=== PATIENT | male | born 1990 | race Caucasian/White ===

== ENCOUNTER 2019-08-20 12:00 | Emergency (ER) | payer OTHER, SELFPAY ==
[2019-08-20 12:13] VITALS: BP 157/79; PULSE 76; RESP 18; TEMP 36.2; O2SAT 100
--- NOTE | 2019-08-20 13:50 | ED.GENADULT ---
HPI - General Adult General Chief complaint: Unspecified Stated complaint: I have an e-cigarette lung injury Time Seen by Provider: 08/20/19 12:06 Source: patient Mode of arrival: ambulatory Limitations: no limitations History of Present Illness HPI narrative: Patient is a 28-year-old male who presents to emergency department with a litany of complaints that have been going on since October when he thought that he had been poisoned by his e-cigarette patient is being managed for primary care for this and has seen woods rider white spooler and is scheduled to see numerous other specialists patient notes that he gets pain in his joints and has had dyspnea that occurs with certain odors and now even eating patient notes that the symptoms began when using his e-cigarette and is adamant that the e-cigarette is the cause patient denies any URI symptoms fever chills nausea vomiting on arrival is in no distress. Patient is requesting that he receive a chest CT today Related Data Home Medications Medication Instructions Recorded Confirmed No Home Medications 08/20/19 08/20/19 Allergies Allergy/AdvReac Type Severity Reaction Status Date / Time No Known Allergies Allergy Mild Verified 08/20/19 12:17 Review of Systems Review of Systems: All systems reviewed & are unremarkable except as noted in HPI and below PMFSH Family History Family History (Updated 10/20/16 @ 14:17 by DOCTOR UNKNOWN) Mother Family history of arthritis Father Family history of chronic obstructive pulmonary disease Social History Social History (Updated 08/20/19 @ 13:52 by Salomón Gooden PA-C) Smoking status: Former smoker Tobacco type: e-cigarettes Second hand tobacco smoke exposure: No Alcohol intake: current Substance use type: marijuana Gender identity (if verbalized by the patient): Male Exam Narrative: Exam Narrative: GENERAL: Well-appearing, well-nourished, and in no acute distress. HEAD: Normocephalic, atraumatic. EYES: PERRLA and EOMI. ENT: Nares clear, no rhinorrhea or epistaxis. Mucous membranes moist. CHEST: Clear to auscultation. No respiratory distress. No wheezes rales or rhonchi HEART: Regular rate and rhythm. No murmur heard. EXTREMITIES: Normal range of motion. No edema. SKIN: Warm, dry, no rash. NEURO: No focal deficits. Alert and oriented x3. Cranial nerves II through XII grossly intact PSYCH: Normal mood and affect. Course Course Emergency Course: Patient in the room in no distress aware of case findings treatment plan and diagnosis Consultations Consultation #1: Patient case discussed and they will follow patient in clinic Date: 08/20/19 Vital Signs Vital signs: Vital Signs Temperature 97.2 F L 08/20/19 12:13 Pulse Rate 76 08/20/19 12:13 Respiratory Rate 18 08/20/19 12:13 Blood Pressure 157/79 H 08/20/19 12:13 Pulse Oximetry 100 08/20/19 12:13 Temperature 97.2 F L 08/20/19 12:13 Pulse Rate 76 08/20/19 12:13 Respiratory Rate 18 08/20/19 12:13 Blood Pressure 157/79 H 08/20/19 12:13 Pulse Oximetry 100 08/20/19 12:13 Medical Decision Making MDM Narrative Medical decision making narrative: Patient in the room in no distress aware of case findings treatment plan and diagnosis no high risk changes in the blood work or imaging is seen numerous specialist for his somatic complaints advised to continue to follow with primary care and felt appropriate for outpatient reevaluation Vital Signs Vital Signs: Vital Signs Temperature 97.2 F L 08/20/19 12:13 Pulse Rate 76 08/20/19 12:13 Respiratory Rate 18 08/20/19 12:13 Blood Pressure 157/79 H 08/20/19 12:13 Pulse Oximetry 100 08/20/19 12:13 Temperature 97.2 F L 08/20/19 12:13 Pulse Rate 76 08/20/19 12:13 Respiratory Rate 18 08/20/19 12:13 Blood Pressure 157/79 H 08/20/19 12:13 Pulse Oximetry 100 08/20/19 12:13 Discharge Plan Discharge Clinical Impression: Chronic dyspnea Harper
== END 2019-08-20 14:32 | disposition home or self-care (01) ==
PROVIDERS: Emergency Provider Emergency Medicine; PCP Family Medicine
DX: R06.09 Other forms of dyspnea (principal); Z87.891 Personal history of nicotine dependence
CPT/HCPCS: 99281

== ENCOUNTER 2019-08-23 17:33 | Outpatient (CLI) | payer OTHER, SELFPAY ==
[2019-08-23 17:55] LABS: Hematocrit 44.7 % (42.0-52.0); Hemoglobin 14.4 g/dL (14.0-18.0); Mean Corpuscular HGB Conc 32.2 g/dl (32-36); Mean Corpuscular Hemoglobin 31.1 pg (26-34); Mean Corpuscular Volume 96.5 fl (80-100); Mean Platelet Volume 10.6 fl (7.4-10.4); Platelet Count Result 176 k/mm3 (150-375); Red Blood Count 4.63 M/mm3 (4.6-6.20); Red Cell Distribution Width 11.9 % (11.5-14.5); White Blood Count 5.6 K/mm3 (4.5-10.0)
[2019-08-23 18:16] LABS: CRP < 0.5 mg/dL (<1.0); Rheumatoid Factor 12.1 IU/ML (<12); Uric Acid 4.5 mg/dL (3.5-8.5)
[2019-08-23 18:24] LABS: Erythrocyte Sedimentation Rate 7 mm/hr (0-20)
[2019-08-27 13:27] LABS: Lyme Disease Ab (IgM), Blot Negative (Negative); Lyme Disease Ab(IgG), Blot Negative (Negative)
[2019-08-28 07:01] LABS: Anti Streptolysin O Screen 60 IU/mL (<200)
== END 2019-08-23 17:34 | disposition home or self-care (01) ==
LOC: ANHLAB 17:35
PROVIDERS: PCP Family Medicine; Visit Provider Orthopaedic Surgery
DX: M25.511 Pain in right shoulder (principal)
CPT/HCPCS: 36415; 84550; 85027; 85652; 86038; 86060; 86140; 86430; 86617

== ENCOUNTER 2019-09-11 12:03 | Outpatient (CLI) | payer OTHER, SELFPAY ==
[2019-09-11 13:36] LABS: Alanine Aminotransferase 24 U/L (4-50); Albumin Level 4.6 g/dL (3.5-5.1); Alkaline Phosphatase 47 U/L (38-126); Aspartate Amino Transferase 26 U/L (17-59); Bilirubin,Total 0.1 mg/dL (0.2-1.3); Blood Urea Nitrogen 17 mg/dL (9-20); Calcium 9.3 mg/dL (8.4-10.2); Carbon Dioxide 25 mmol/L (22-30); Chloride 105 mmol/L (98-107); Estimated Glomerular Filt Rate > 60; Glucose 102 mg/dL (75-110); Potassium 4.7 mmol/L (3.4-5.0); Sodium 138 mmol/L (137-145)
[2019-09-11 13:40] LABS: Hemoglobin A1C 5.5 % (<5.7)
[2019-09-11 14:12] LABS: Cortisol Random 9.78 ug/dL; Total Triiodothyronine (T3) 1.15 NG/ML (0.97-1.69)
[2019-09-11 14:59] LABS: Free T4 Free Thyroxine 0.75 ng/mL (0.78-2.19); Vitamin D 25 Hydroxy 48.4 ng/mL
[2019-09-13 13:42] LABS: Adrenocorticotropic Hormone 27 pg/mL (6-50)
[2019-09-14 04:35] LABS: Insulin Level Total 3.6 uIU/mL (<=19.6); Thyroid Peroxidase Antibodies <1 IU/mL (<9)
[2019-09-14 08:49] LABS: Testosterone Total 560 ng/dL (250-1100)
[2019-09-14 11:56] LABS: Reference Lab Test Result <0.10 kU/L
[2019-09-14 23:10] LABS: CRP, High Sensitivity <0.3 mg/L (***)
[2019-09-15 14:32] LABS: Thyroid Stimulating Immunoglob <89 % baseline (<140)
[2019-09-17 12:36] LABS: T3 Reverse 11 ng/dL (8-25)
[2019-09-17 17:52] LABS: Estradiol, Ultrasensitive 19 pg/mL (< OR = 29)
== END 2019-09-11 12:04 | disposition home or self-care (01) ==
PROVIDERS: PCP Family Medicine; Visit Provider Internal Medicine Endocrinology, Diabetes & Metabolism
DX: R06.02 Shortness of breath (principal); D64.9 Anemia, unspecified; E55.9 Vitamin D deficiency, unspecified; E03.9 Hypothyroidism, unspecified
CPT/HCPCS: 36415; 80053; 82024; 82306; 82533; 82607; 82670; 82728; 83036; 83090; 83520; 83525; 83735; 84403; 84439; 84443; 84445; 84480; 84481; 84482; 86003; 86038; 86141; 86376

== ENCOUNTER 2019-09-14 10:48 | Outpatient (CLI) | payer OTHER, SELFPAY ==
--- NOTE | ~2019-09-14 | XR_ITS ---
EXAMINATION: XR fl inj shoulder RT - MR/CT DATE: 09/14/2019 12:09 INDICATION: Right shoulder pain. No prior dislocation or surgery. TECHNIQUE: A time-out was performed to verify the patient's name, date of , and procedure to b e performed. The procedure including the risks, benefits, and alternatives was discussed with the pat ient. Risks discussed included bleeding and infection. The patient understood the risks and agreed to proceed. The skin overlying the right glenohumeral joint was prepped and draped in usual sterile fas hion. Anesthetic was administered with 1% lidocaine subcutaneously. A 22 G needle was advanced unde r fluoroscopic guidance into the joint. Subsequently, injectate consisting of 12 mL of 1:200 Multiha nce, 1:4 1% lidocaine, and 1:4 Omnipaque 240 was instilled. The needle was removed and the entry sit e was cleaned and dressed. There were no immediate complications. Fluoroscopy exposure time was 0.0 minutes. The total number of images was 2. FINDINGS: Real-time fluoroscopy demonstrates the needle and contrast in the right glenohumeral joint. IMPRESSION: 1. Successful right glenohumeral joint injection of contrast for subsequent MR arthrography. Reviewed, dictated and finalized at location A.
--- NOTE | ~2019-09-14 | MR_ITS ---
EXAMINATION: MR shoulder RT w con DATE: 09/14/2019 12:31 INDICATION: Right shoulder pain. TECHNIQUE: Magnetic resonance imaging (MRI) of the right shoulder was performed without intravenous c ontrast after intra-articular injection of contrast (MR arthrogram). Sequences included axial T1-weig hted FS FSE and T2-weighted FS FSE, coronal-oblique T1-weighted FS FSE and T2-weighted FS FSE, sagitt al-oblique T1-weighted FSE and T2-weighed FS FSE, and ABER T1-weighted FS FSE. COMPARISON: None. FINDINGS: Coracoacromial arch: The acromion undersurface is curved in morphology (type II). There is mild acromial clavicle joint os teoarthritis. There is mild subacromial/subdeltoid bursitis. There is no contrast in the bursa. Rotator cuff: There is an articular-sided, partial-thickness tear of supraspinatus tendon measuring 8 mm anterior t o posterior by 17 mm proximal to distal by 60% tendon thickness. There is mild infraspinatus tendinop athy. Teres minor tendon is normal. Subscapularis tendon is normal. There is no asymmetric fatty atro phy of the rotator cuff muscle bellies. There is degenerative cystic change in greater tuberosity. Biceps tendon and glenoid labrum: Biceps tendon is in bicipital groove. The intra-articular biceps tendon is normal. There is a tear of glenoid labrum from 10:00 to 12:00 (SLAP tear). Fluid: The glenohumeral joint is well distended by contrast. Bones/cartilage: Glenoid cartilage is normal. Humeral head cartilage is normal. IMPRESSION: 1. Articular-sided, partial-thickness tear of supraspinatus tendon. 2. SLAP tear. 3. Mild acromioclavicular joint osteoarthritis. 4. Mild subacromial/subdeltoid bursitis. Reviewed, dictated and finalized at location A.
== END 2019-09-14 10:49 | disposition home or self-care (01) ==
LOC: ANHIMG 10:50
PROVIDERS: PCP Family Medicine; Visit Provider Orthopaedic Surgery
DX: M25.511 Pain in right shoulder (principal); S43.431A Superior glenoid labrum lesion of right shoulder, initial encounter; M19.011 Primary osteoarthritis, right shoulder; M75.51 Bursitis of right shoulder
CPT/HCPCS: 23350; 73222; 77002; A9577; Q9966

== ENCOUNTER 2019-10-03 16:14 | Outpatient (CLI) | payer OTHER, SELFPAY ==
[2019-10-05 03:49] LABS: Anti Cardio Antibody IgM <12 MPL (<=12); Anti Cardiolipin Antibody IgA <11 APL (<=11); Anti Cardiolipin Antibody IgG <14 GPL (<=14)
== END 2019-10-03 16:15 | disposition home or self-care (01) ==
PROVIDERS: PCP Family Medicine; Visit Provider Orthopaedic Surgery
DX: M25.511 Pain in right shoulder (principal)
CPT/HCPCS: 36415; 86147

== ENCOUNTER 2019-10-09 16:48 | Outpatient (CLI) | payer OTHER, SELFPAY ==
[2019-10-12 01:43] LABS: Thyroglobulin 9.6 ng/mL (2.8-40.9); Thyroglobulin Antibodies <1 IU/mL (<=1)
== END 2019-10-09 16:49 | disposition home or self-care (01) ==
PROVIDERS: PCP Family Medicine
DX: E03.9 Hypothyroidism, unspecified (principal)
CPT/HCPCS: 36415; 84432; 86800

== ENCOUNTER 2019-10-13 16:51 | Outpatient (CLI) | payer OTHER, SELFPAY | END 2019-10-13 16:52 | disposition home or self-care (01) | PROVIDERS: PCP Family Medicine; Visit Provider Orthopaedic Surgery | DX: M25.511 Pain in right shoulder (principal) | CPT/HCPCS: 99199; 36415; 86200 ==

== ENCOUNTER 2019-10-16 11:15 | Outpatient (CLI) | payer OTHER, SELFPAY | END 2019-10-16 11:16 | disposition home or self-care (01) | PROVIDERS: PCP Family Medicine; Visit Provider Family Medicine | DX: M79.10 Myalgia, unspecified site (principal) | CPT/HCPCS: 36415; 87633 ==

== ENCOUNTER 2019-11-30 15:46 | Outpatient (CLI) | payer OTHER, SELFPAY ==
--- NOTE | ~2019-11-30 | CT_ITS ---
EXAMINATION: CT chest wo con DATE: 11/30/2019 16:32 INDICATION: Exposure to patient potentially harmful entity. Hazardous compounds. TECHNIQUE: Computed tomography (CT) of the chest was performed without intravenous contrast. The dose -length product was 171.82 mGy-cm. Automated exposure control and iterative reconstruction technique were employed. COMPARISON: None FINDINGS: Thyroid gland is unremarkable. No abnormality of the thoracic aorta. Heart size is borderli ne. No significant pleural or pericardial effusion. No thoracic lymphadenopathy. Calcified granuloma right upper lobe. No focal airspace consolidation. No endobronchial lesions. No pneumothorax. No pulm onary nodules/masses. There is mild pectus excavatum. No acute osseous abnormality. No osteolytic or blastic lesions. IMPRESSION: 1. Unremarkable CT chest. Reviewed, dictated and finalized at location A. IMPRESSION: 1. Unremarkable CT chest.
== END 2019-11-30 15:47 | disposition home or self-care (01) ==
PROVIDERS: PCP Family Medicine; Visit Provider Nurse Practitioner
DX: Z77.028 Contact with and (suspected) exposure to other hazardous aromatic compounds (principal)
CPT/HCPCS: 71250

== ENCOUNTER 2020-02-09 12:07 | Outpatient (CLI) | payer OTHER, SELFPAY | END 2020-02-09 12:08 | disposition home or self-care (01) | PROVIDERS: PCP Family Medicine | DX: D64.9 Anemia, unspecified (principal) | CPT/HCPCS: 36415; 82728 ==

== ENCOUNTER 2020-03-07 11:29 | Outpatient (CLI) | payer OTHER, SELFPAY ==
[2020-03-07 12:10] LABS: Cholesterol 205 mg/dL (0-200); HDL Direct 65 mg/dL; Triglycerides 63 mg/dL (<150)
[2020-03-07 12:21] LABS: LDL Cholesterol Direct 109 mg/dL
== END 2020-03-07 11:30 | disposition home or self-care (01) ==
PROVIDERS: PCP Family Medicine; Visit Provider Family Medicine
DX: E78.5 Hyperlipidemia, unspecified (principal)
CPT/HCPCS: 36415; 80061

== ENCOUNTER 2020-05-13 14:34 | Outpatient (CLI) | payer OTHER, SELFPAY ==
[2020-05-13 15:53] LABS: Free T4 Free Thyroxine 0.93 ng/mL (0.78-2.19)
== END 2020-05-13 14:35 | disposition home or self-care (01) ==
PROVIDERS: PCP Family Medicine
DX: J02.9 Acute pharyngitis, unspecified (principal)
CPT/HCPCS: 36415; 84439; 84443

== ENCOUNTER 2020-07-03 12:34 | Outpatient (CLI) | payer OTHER, SELFPAY ==
--- NOTE | ~2020-07-03 | US_ITS ---
EXAMINATION: US soft tissue UE LT DATE: 07/03/2020 13:09 INDICATION: Lymphadenopathy. Palpable lump at the radial side of the left forearm. TECHNIQUE: Multiple grayscale and Doppler ultrasound images of the region of concern at the radial si de of the left forearm were obtained. COMPARISON: None FINDINGS: There is subtle architectural distortion to the septations within the subcutaneous fat 10 x 4 x 11 mm which appears to result from a very subtle nodule which is isoechoic and with identical echotexture to the surrounding fat most consistent with a lipoma. IMPRESSION: 1. 10 x 4 x 11 mm nodule nearly indiscernible from the surrounding subcutaneous fat which is most con sistent with a lipoma. Reviewed, dictated and finalized at location A. BULATORY TECHNOLOGIST IMPRESSION: 1. 10 x 4 x 11 mm nodule nearly indiscernible from the surrounding subcutaneous fat which is most consistent with a lipoma.
== END 2020-07-03 12:35 | disposition home or self-care (01) ==
PROVIDERS: PCP Family Medicine
DX: R59.0 Localized enlarged lymph nodes (principal)
CPT/HCPCS: 76882